=== PATIENT | male | born 1940 | race Caucasian/White ===

== ENCOUNTER 2022-01-23 05:27 | Emergency (ER) | payer OTHER ==
[~2022-01-23] VITALS: Ht 167.6 cm; Wt 57.0 kg
[2022-01-23 08:55] VITALS: BP 160/70
== END 2022-01-23 08:57 | disposition home or self-care (01) ==
LOC: ER 05:27
DX: R04.0 Epistaxis (principal); Z88.6 Allergy status to analgesic agent; Z88.8 Allergy status to other drugs, medicaments and biological substances
CPT/HCPCS: 99283

== ENCOUNTER 2022-01-26 09:40 | Emergency (ER) | payer OTHER ==
[~2022-01-26] VITALS: Ht 167.6 cm; Wt 64.0 kg
[2022-01-26] MEDS ORDERED: SODIUM CHLORIDE 0.9% 1000ML BAG (SEPSIS BOLUS) IV ONE (10:15)
[2022-01-26 11:10] LABS: BASOPHILS % 0.5 % (0.0-2.0); CHLORIDE 97 mEq/L (98-107); EOSINOPHILS % 2.8 % (0.0-5.0); LYMPHOCYTES % 17.2 % (20.0-50.0); MEAN CORPUSCULAR HEMOGLOBIN 32.5 pg (28.0-32.0); MEAN CORPUSCULAR VOLUME 98.1 fL (80.0-94.0); MONOCYTES % 6.9 % (2.0-8.0); NEUTROPHILS % 72.6 % (40.0-76.0); PLATELET 192 x1000/uL (130-400); RED BLOOD CELL COUNT 1.59 mill/uL (4.7-6.1); RED CELL DISTRIBUTION WIDTH 19.1 % (11.6-14.6)
[2022-01-26 11:13] LABS: HEMATOCRIT. 15.6 % (42.0-52.0); HEMOGLOBIN. 5.1 g/dL (14.0-18.0)
[2022-01-26] MEDS ORDERED: POTASSIUM CHLORIDE INJ 40 MEQ in DEXT 5% WATER 500 ML IV ONE (11:45)
[2022-01-26] MEDS ORDERED: AZITHROMYCIN 500MG/250ML 250 ML IV ONE (12:00)
[2022-01-26] MEDS ORDERED: KCL 20MEQ/100ML X 2 FOR TOTAL KCL 40MEQ/200ML IV SCH (12:00)
[2022-01-26] MEDS ORDERED: CEFTRIAXONE 1 G PREMIX 50 ML IV ONE (12:00)
[2022-01-26] MEDS ORDERED: CEFTRIAXONE 1,000 MG in DEXTROSE 5% WATER 50 ML IV NR (13:00)
[2022-01-26] MEDS ORDERED: CEFTRIAXONE SODIUM 1 G/VIAL ONE (13:34)
[2022-01-26] MEDS ORDERED: ZOLPIDEM TARTRATE 5MG TABLET PO PRN (17:45)
[2022-01-26] MEDS ORDERED: TRAMADOL 50MG TABLET PO PRN (17:45)
[2022-01-26] MEDS ORDERED: IPRATROPIUM/ALBUTEROL 0.5-3(2.5)MG/3ML NEB NEB PRN (17:45)
[2022-01-26] MEDS ORDERED: ONDANSETRON HCL 4MG/2ML INJ IV PRN (17:45)
[2022-01-26] MEDS ORDERED: DIPHENHYDRAMINE 50MG/ML VIAL IV PRN (17:45)
[2022-01-26] MEDS ORDERED: CLONIDINE 0.1MG TABLET PO PRN (17:45)
[2022-01-26] MEDS ORDERED: MAGNESIUM/ALUMINUM HYDROXIDE/SIMETHICONE 30ML UDC PO PRN (17:45)
[2022-01-26] MEDS ORDERED: ACETAMINOPHEN 325MG TABLET PO PRN ×2 (17:45)
[2022-01-26] MEDS ORDERED: GUAIFENESIN 200MG/10ML SUGAR FREE UDC PO PRN (17:45)
[2022-01-26] MEDS ORDERED: NITROGLYCERIN 0.4MG TABLET SL SL PRN (17:45)
[2022-01-26] MEDS ORDERED: DEXTROSE 50% WATER 50ML SYRINGE IV PRN (17:45)
[2022-01-26] MEDS ORDERED: DOCUSATE SODIUM 100MG CAPSULE PO PRN (17:45)
[2022-01-26 18:15] VITALS: BP 105/63
[2022-01-26] MEDS ORDERED: INSULIN LISPRO 100 UNITS/ML SUBCUT SCH (18:20)
[2022-01-26 18:29] LABS: T4 FREE 1.05 ng/dL (0.76-1.46)
[2022-01-26] MEDS ORDERED: POTASSIUM CHLORIDE 20MEQ TABLET SR PO NR (18:30)
[2022-01-26] MEDS ORDERED: PANTOPRAZOLE SODIUM 40 MG/VIAL IV SCH (18:30)
[2022-01-26 18:54] LABS: FOLIC ACID (FOLATE) SERUM >20 ng/mL ng/mL (>5.38)
[2022-01-26 19:05] LABS: VITAMIN B12 SERUM >2000 pg/mL pg/mL (211-911)
[2022-01-26] MEDS ORDERED: PIPERACILLIN/TAZ 3.375G PREMIX 50 ML IV SCH (20:00)
[2022-01-26] MEDS ORDERED: BLOOD SUGAR DIAGNOSTIC STRIP TEST SCH (21:00)
[2022-01-26] MEDS ORDERED: ASCORBIC ACID 500 MG TABLET PO SCH (21:00)
[2022-01-27] MEDS ORDERED: ZINC SULFATE 220 MG ( 50 ) CAPSULE PO SCH (09:00)
== END 2022-01-26 18:39 | disposition short-term general hospital (02) ==
LOC: ER 09:40 → EDBEDREQSVC 12:00 → EDBEDREQ 12:00 → EDBEDREQSVC 17:38 → EDBEDREQ 17:38 → SUPCPDRO 18:08 → ER 18:39 → CANBEDREQ 22:39
DX: D63.1 Anemia in chronic kidney disease (principal); E11.22 Type 2 diabetes mellitus with diabetic chronic kidney disease; I12.0 Hypertensive chronic kidney disease with stage 5 chronic kidney disease or end stage renal disease; E87.6 Hypokalemia; N18.6 End stage renal disease; E78.00 Pure hypercholesterolemia, unspecified; Z75.1 Person awaiting admission to adequate facility elsewhere; Z88.8 Allergy status to other drugs, medicaments and biological substances; Z89.511 Acquired absence of right leg below knee; Z99.2 Dependence on renal dialysis; Z20.822 Contact with and (suspected) exposure to COVID-19
CPT/HCPCS: 36415; 70450; 71045; 80053; 80061; 82607; 82746; 83036; 83540; 83550; 83605; 84145; 84439; 84443; 84484; 85025; 86850; 86900; 86901; 86920; 87040; 87426; 93005; 96361; 96365; 96366; 96368; 99291; J0456; J0696; J3480; J7030; J7060; P9016